=== PATIENT | male | born 1980 | race Caucasian/White ===

== ENCOUNTER 2024-01-11 13:33 | Outpatient (OUT) | payer BC, SELFPAY | END 2024-01-11 13:34 | disposition home or self-care (01) | LOC: PST 13:34 | PROVIDERS: Visit Provider Surgery | DX: Z01.818 Encounter for other preprocedural examination (principal); K62.5 Hemorrhage of anus and rectum ==

== ENCOUNTER 2024-01-14 14:05 | Outpatient (OUT) | payer BC, SELFPAY ==
--- NOTE | 2024-01-14 | XR_ITS ---
[address] [address] Patient Name: LAUREN PARNELL MRN: [id number] date: 1980 Sex: M Assigned Patient Location: [facility] Current Patient Location: [facility] Accession/Order Number: [id number] Exam Date: 01/14/2024 14:15 Report Date: 01/14/2024 14:51 At the request of: YVETTE PEARCE Procedure: XR chest 2V EXAM: XR chest 2V HISTORY: pre surgical testing COMPARISON: None. TECHNIQUE: PA, lateral chest x-ray. FINDINGS: Lungs clear without infiltrate or edema or focal lesion. Normal heart size and mediastinal contour. No pleural effusion or pneumothorax. No suspicious bone lesion. XR/XR chest 2V IMPRESSION: Negative chest x-ray, no acute findings. Electronically authenticated by: ELLEN YAO Date: 01/14/2024 14:51
--- OUTSIDE RECORDS SUMMARY | 2024-01-14 14:08 | XMS_ITS | CCD ---
Author Organization [facility] Team Providers Care Tare Worker Name Role Phone Joy Nieto Unavailable SHANTELL SINGH Referring Unavailable ALEX DONOVAN Primary Care Unavailable Lindsay Stevens NP Unavailable Alex Donovan DO Primary Care Provider Lindsay Stevens NP Unavailable LINDSAY STEVENS Attending Unavailable LINDSAY STEVENS Referring Unavailable ALONSO GRANADOS Attending Unavailable YVETTE PEARCE Attending Unavailable Medications Current Medications Medication Drug Class(es) Dates Sig (Normalized) Sig (Original) cyclobenzaprine hydrochloride 10 mg oral tablet (1 source) Muscle Relaxant Start: 2 take 1 tablet by mouth every eight hours Cyclobenzaprine HCl 10 MG 1 tablet as needed Orally Three times a day for 7 days Apr, Active methylPREDNISolone 4 mg oral tablet (1 source) Corticosteroid Start: 2 methylPREDNISolone 4 MG as directed Orally Once a day for 6 days Apr, Active multivitamin (Theragran) tablet (3 sources) take 1 tablet by mouth once daily multivitamin (Theragran) tablet Take 1 tablet by mouth Daily Active therapeutic multivitamin-minerals (Theragran-M) tablet (2 sources) take 1 tablet by mouth once daily therapeutic multivitamin-minerals (Theragran-M) tablet Take 1 tablet by mouth Daily Active Problems Active Problems Problem Classification Problem Date Documented Da te Episodic/Chronic Gastrointestinal hemorrhage (4 sources) Rectal hemorrhage; Translations: [Hemorrhage of anus and rectum] 01-02-2024 Episodic Genitourinary symptoms and ill-defined conditions (1 source) Other symptoms and signs involving the genitourinary system; Translations: [Other symptoms and signs involving the genitourinary system] Onset: 06-26-2023 Episodic Spondylosis; intervertebral disc disorders; other back problems (2 sources) Inflammation of sacroiliac joint; Translations: [Sacroiliitis, not elsewhere classified] 01-02-2024 Chronic Past or Other Problems Problem Classification Problem Date Documented Da te Episodic/Chronic Mood disorders (3 sources) Mood disorders Onset: 05-17-2023 05-17-2023 Other lower respiratory disease (1 source) Pleurodynia Onset: 04-27-2021 Resolved: 04-27-2021 Episodic Results Test Name Value Interpretation Reference Range Facility Cult,Urineon 06-27-2023 Cult,Urine Specimen Description .CLEAN CATCH URINE Culture NO GROWTH Report Status FINAL 06/27/2023 Normal [facility] Comment on above: Performed By: #### U RC #### [address] [id number] Boxing Promoter: Laureano Trinidad MD [facility] [address] [place] [address] [place] [address] Boxing Promoter: Yogi Chase MD Urinalysis w/ Microon 2023 Bilirubin, SemiQt,Ur Negative Normal NEG [facility] Comment on above: Performed By: #### U AMIC #### [address] [place] [address] Boxing Promoter: Yogi Chase MD Blood, Urine Negative Normal NEG [facility] Comment on above: Performed By: #### U AMIC #### [facility] [address] [place] [address] [place] [address] Boxing Promoter: Yogi Chase MD Clarity (U) Clear Normal CLEAR [facility] Comment on above: Performed By: #### U AMIC #### [address] [place] [address] Boxing Promoter: Yogi Chase MD Color (U) Yellow Normal YEL [facility] Comment on above: Performed By: #### U AMIC #### [facility] [address] [place] [address] Dr. [place], [place] [id number] Boxing Promoter: Yogi Chase MD Epithelial cells LM Ql (Urine sed) None Normal 0-5 [facility] Comment on above: Performed By: #### U AMIC #### [facility] [address] [place] [address] Dr. [place], [place] [phone] Boxing Promoter: Yogi Chase MD Glucose Ql (U) Negative Normal NEG [facility] Comment on above: Performed By: #### U AMIC #### [address] [place], [place] [phone] Boxing Promoter: Yogi Chase MD Ketones Ql (U) Negative Normal NEG [facility] Comment on above: Performed By: #### U AMIC #### [address] [place], [place] [id number] Boxing Promoter: Yogi Chase MD Leukocyte esterase Test strip Ql (U) Negative Normal NEG [facility] Comment on above: Performed By: #### U AMIC #### [address] [place], [place] [phone] Boxing Promoter: Yogi Chase MD Nitrite,Ur Negative Normal NEG [facility] Comment on above: Performed By: #### U AMIC #### [facility] [address] [place] [address] Dr. [place], [facility] Boxing Promoter: Yogi Chase MD PH,Ur 7.0 Normal 5.0-9.0 [facility] Comment on above: Performed By: #### U AMIC #### [address] [place], [place] [phone] Boxing Promoter: Yogi Chase MD Protein Ql (U) Negative Normal NEG [facility] Comment on above: Performed By: #### U AMIC #### [facility] [address] [place] [address] Dr[place], [place] [phone] Boxing Promoter: Yogi Chase MD Spec. [place],Ur <1.005 Low 1.010-1.020 [facility] Comment on above: Performed By: #### U AMIC #### [facility] [address] [place] [phone] Boxing Promoter: Yogi Chase MD Urine RBC's None Normal 0-2 [facility] Comment on above: Performed By: #### U AMIC #### [facility] [address] [place] [address] [place] [address] Boxing Promoter: Yogi Chase MD Urine WBC's None Normal 0-5 [facility] Comment on above: Performed By: #### U AMIC #### [facility] [address] [place] [address] Dr. [place] [phone] Boxing Promoter: Yogi Chase MD Urobilinogen,Ur Normal Normal 0.0-1.0 [facility] Comment on above: Performed By: #### U AMIC #### [address] [place] [phone] Boxing Promoter: Yogi Chase MD CT Chest w/Contraston 2022 CT Chest w/Contrast CLINICAL INDICATION: Right middle lobe nodule, found on recent thoracic spine CT. COMPARISON: Thoracic spine CT 06/17/22. TECHNIQUE: Axial CT scan of the chest was performed following intravenous contrast. Sagittal and coronal reformats were obtained. FINDINGS: Lungs: Pulmonary parenchyma is without evidence of consolidation. A 6 mm angular nodule in the right middle lobe is along the minor fissure. No pleural effusion. No pneumothorax. Mediastinum, heart, and hilum: A 12 mm anterior mediastinal/prevascu lar nodule with adjacent residual thymic tissue is redemonstrated. No evidence of mediastinal or hilar adenopathy. Normal cardiac chamber orientation. No pericardial thickening or effusion. Upper Abdomen: Imaged portions of the solid organs are unremarkable. Bones and soft tissues: Old T8 and T9 minimally depressed superior endplate compression fractures are redemonstrated. No acute bone or soft tissue abnormality is seen. IMPRESSION: 1. The 6 mm right middle lobe nodule is unchanged, and most likely an intrafissural lymph node. Fleischner criteria recommends follow-up chest CT in 6-12 months. 2. Unchanged 12 mm anterior mediastinal nodule. This is again nonspecific, but a thymoma is not excluded. Attention warranted on follow-up chest CT. Report reported and signed by Kael Downey on 06/27/2022 [address] [facility] [address] Lumbar Spine w/o Contrast *on 06-17-2022 CT Lumbar Spine w/o Contrast* CLINICAL HISTORY: Pain and impaired gait. COMPARISON: None available. TECHNIQUE: Spiral imaging was obtained of the lumbar spine without contrast. All CT scans at this facility use dose modulation, iterative reconstruction, and/or weight based dosing when appropriate to reduce radiation dose to as low as reasonably achievable. FINDINGS: A mild chronic compression deformity of the superior endplate of L4 is present with a prominent Schmorl's node in the anterior third. Borderline degenerative retrolisthesis is present at L2-L3 and L5-S1. Borderline disc space narrowing L3-L4 through L5-S1. No significant hypertrophic facet changes. There is no other fracture, sizable disc herniations, worrisome bone destruction, or other findings of concern identified. The visualized sacroiliac joints and paraspinal soft tissues are unremarkable. IMPRESSION: MILD CHRONIC L4 COMPRESSION DEFORMITY AND MILD LUMBAR SPONDYLOSIS, NOTED. Report reported and signed by Sebastian Serrano on 06/20/2022 [address] [facility] [address] Thoracic Spine w/o Contra st*on 06-17-2022 CT Thoracic Spine w/o Contrast* CLINICAL HISTORY: Pain radiating to both upper extremities and impaired gait. COMPARISON: None available. TECHNIQUE: Spiral imaging was obtained of the thoracic spine without contrast. All CT scans at this facility use dose modulation, iterative reconstruction, and/or weight based dosing when appropriate to reduce radiation dose to as low as reasonably achievable. FINDINGS: Minimal chronic compression deformities are present of the superior endplates of T9 and T10 vertebral bodies. There is no acute or other fracture, significant degenerative changes, subluxation, sizable disc herniations worrisome bone destruction, or acute findings identified. An approximately 1.2 x 1.0 cm nonspecific ovoid soft tissue density nodule is noted within the anterior mediastinum (axial image 44 of 134), with mild surrounding ill-defined probable residual thymus tissue. A thymoma is a consideration. Surgical consultation is suggested. Further evaluation with a PET/CT could be considered. An approximately 5 to 6 mm somewhat triangular-shaped probably juxtapleural nodule within the anterolateral aspect of the mid right lung zone (axial image 57 of 134) is most likely benign. There are no other findings of concern identified elsewhere. IMPRESSION: CHRONIC MINIMAL COMPRESSION DEFORMITIES OF THE SUPERIOR ENDPLATES OF T9 AND T10. NONSPECIFIC 1.2 CM ANTERIOR MEDIASTINAL SOFT TISSUE NODULE, NOTED. PROBABLY JUXTAPLEURAL 5 TO 6 MM RIGHT MID LUNG ZONE NODULE. FURTHER EVALUATION WITH A PET/CT COULD BE CONSIDERED. Report reported and signed by Sebastian Serrano on 06/20/2022 1143 Normal [facility] Complete Blood Counton 07-19 Erythrocyte distribution width (RBC) [Ratio] 11.9 % Normal 11.0-15.0 [facility] Comment on above: Performed By: #### C YAHAIRA ACKERMAN, CMP #### [facility] [address] [place], [place] [id number] Hematocrit (Bld) [Volume fraction] 47.6 % Normal 38.5-50.0 [facility] Comment on above: Performed By: #### YAHAIRA ANTHONY, CMP #### [facility] [address], [place] [id number] Hemoglobin (Bld) [Mass/Vol] 16.1 g/dL Normal 13.0-17.1 [facility] Comment on above: Performed By: #### YAHAIRA ANTHONY, CMP #### [facility] [address] [place], [place] [id number] MCH (RBC) [Entitic mass] 31.6 pg Normal 27.0-33.0 [facility] Specialist Comment on above: Performed By: #### C YAHARIA ACKERMAN, CMP #### [facility] [address], [place] [id number] MCHC (RBC) [Mass/Vol] 33.8 g/dL Normal 32.0-36.0 [facility] Comment on above: Performed By: #### YAHAIRA ANTHONY, CMP #### [facility] [address] [place], [place] [id number] MCV (RBC) [Entitic vol] 94 fL Normal 80-100 [facility] Comment on above: Performed By: #### YAHAIRA ANTHONY, CMP #### [facility] [address] [place], [place] [id number] Platelet mean volume (Bld) [Entitic vol] 11.80 fL Normal 7.50-12.50 [facility] [employer] Comment on above: Performed By: #### YAHAIRA ANTHONY, CMP #### [facility] [address] [place], [place] [id number] Platelets (Bld) [#/Vol] 222 10*3/uL Normal 140-400 [facility] Special[facility] Comment on above: Performed By: #### YAHAIRA ANTHONY, CMP #### [facility] [address] [place], [place] [id number] RBC (Bld) [#/Vol] 5.09 10*6/uL Normal 4.20-5.80 [facility] Specialist Comment on above: Performed By: #### YAHAIRA ANTHONY, CMP #### [facility] [address] [place], [place] [id number] RDW-SD 41.3 fL Normal 37.0-50.0 [facility] Specialist Comment on above: Performed By: #### YAHAIRA ANTHONY, CMP #### [facility] [address] [place], [place] [id number] WBC (Bld) [#/Vol] 6.4 10*3/uL Normal 3.8-11.0 [facility] [employer] Comment on above: Performed By: #### Cabrera ACKERMAN LIPD, CMP #### [facility] [address] [place], [place] [id number] Comprehensive Met[facility] 07-19-2021 Albumin [Mass/Vol] 4.7 g/dL Normal 3.6-5.1 [facility] [employer] Comment on above: Performed By: #### Cabrera ACKERMAN LIPD, CMP #### [facility] [address] [place], [place] [id number] Albumin/Globulin [Mass ratio] 2.1 {ratio} Normal 1.0-2.5 [facility] Special[facility] Comment on above: Performed By: #### C BC, LIPD, CMP #### [facility] [address] [place], [place] [id number] ALP [Catalytic activity/Vol] 68 U/L Normal 40-129 [facility] Special[facility] Comment on above: Performed By: #### C BC, LIPD, CMP #### [facility] [address] [facility] [place] [id number] ALT [Catalytic activity/Vol] 29 U/L Normal 9-46 [facility] Comment on above: Result Comment: 01/27 Female reference range changed. Performed By: #### C BC, LIPD, CMP #### [facility] [address] [place] [id number] Anion gap [Moles/Vol] 16 mmol/L Normal 12-20 [facility] Special[facility] Comment on above: Result Comment: Effe ctive 03/04/2019 reference range changed. Performed By: #### C BC, LIPD, CMP #### [facility] [address] [facility] [place] [id number] AST [Catalytic activity/Vol] 30 U/L Normal 10-40 [facility] Special[facility] Comment on above: Performed By: #### C BC, LIPD, CMP #### [facility] [address] [place] [facility] [place] [id number] Bilirubin [Mass/Vol] 0.66 mg/dL Normal 0.30-1.20 [facility] Special[facility] Comment on above: Performed By: #### C BC, LIPD, CMP #### [facility] [address] [place], [place] [id number] BUN/CREA 16 Ratio Normal 6-22 [facility] Specialist Comment on above: Performed By: #### C BC, LIPD, CMP #### [facility] [address] [place], [place] [id number] Calcium [Mass/Vol] 10.0 mg/dL Normal 8.6-10.2 [facility] Comment on above: Performed By: #### C BC, LIPD, CMP #### [facility] [address] [id number] Chloride [Moles/Vol] 105 mmol/L Normal 98-107 [facility] Comment on above: Performed By: #### C BC, LIPD, CMP #### [facility] [address] [place] [id number] CO2 [Moles/Vol] 24 mmol/L Normal 20-31 [facility] Comment on above: Performed By: #### C BC, LIPD, CMP #### [facility] [address] [place], [place] [id number] Creatinine [Mass/Vol] 0.8 mg/dL Normal 0.7-1.4 [facility] Special[facility] Comment on above: Performed By: #### C BC, LIPD, CMP #### [facility] [address] [id number] eGFRAA 125 mL/min/1.73m2 Normal >60 [facility] Comment on above: Performed By: #### C BC, LIPD, CMP #### [facility] [address] [place] [facility] [place] [id number] eGFRNAA 104 mL/min/1.73m2 Normal >60 [facility] Comment on above: Performed By: #### C BC, LIPD, CMP #### [facility] [address] [place] [facility] [place] [id number] Globulin (S) [Mass/Vol] 2.2 g/dL Normal 1.9-3.7 [facility] Comment on above: Performed By: #### C BC, LIPD, CMP #### [facility] [address] [place] [facility] [place] [id number] Glucose [Mass/Vol] 86 mg/dL Normal 65-99 [facility] Comment on above: Result Comment: For FASTING Glucose --- ADA reference ranges: Normal 65-99 mg/dl Prediabetes 100-125 Diabetes >/= 126 Performed By: #### C BC, LIPD, CMP #### [facility] [address] [place] [facility] [place] [id number] Potassium [Moles/Vol] 4.8 mmol/L Normal 3.5-5.5 [facility] Specialist Comment on above: Performed By: #### C BC, LIPD, CMP #### [facility] [address] [place] [facility] [place] [id number] Protein [Mass/Vol] 6.9 g/dL Normal 6.1-8.1 [facility] [place] [employer] Comment on above: Performed By: #### C BC, LIPD, CMP #### [facility] [address] [place], [place] [id number] Sodium [Moles/Vol] 140 mmol/L Normal 135-146 [facility] [place] [employer] Comment on above: Performed By: #### C BC, LIPD, CMP #### [facility] [address] [place], [place] [id number] Urea nitrogen [Mass/Vol] 13 mg/dL Normal 7-25 [facility] [employer] Comment on above: Performed By: #### C BC, LIPD, CMP #### [facility] [address] [place], [place] [id number] Lipid Panelon 07-19-2021 Cholesterol [Mass/Vol] 180 mg/dL Normal 125-200 [facility] [employer] Comment on above: Result Comment: Low risk < 200mg/dL Borderline risk 201-239 mg/dl High risk > or equal to 240 Performed By: #### C BC, LIPD, CMP #### [facility] [address] [place], [place] [id number] Cholesterol in HDL [Mass/Vol] 47 mg/dL Normal >40 [facility] [employer] Comment on above: Result Comment: High Cardiovascular Risk HDL <40 mg/dL Low Cardiovascular Risk HDL > or equal to 60 mg/dl Performed By: #### C BC, LIPD, CMP #### [facility] [address], [place] [id number] Cholesterol in LDL [Mass/Vol] 116 mg/dL Normal [facility] [employer] Comment on above: Result Comment: LDL ATP III CLASSIFICATION LDL less than 100 mg/dl Optimal LDL 100-129 mg/dl Near or above optimal LDL 130-159 Borderline high LDL 160-189 High LDL greater than 189 mg/dl Very High Performed By: #### C BC, LIPD, CMP #### [facility] [address] [place], [place] [id number] Cholesterol in VLDL [Mass/Vol] 17 mg/dL Normal [facility] [employer] Comment on above: Performed By: #### C BC, LIPD, CMP #### [facility] [address] [place], [place] [id number] Cholesterol.total/C holesterol in HDL [Mass ratio] 4 {ratio} Normal [facility] [employer] Comment on above: Performed By: #### C BC, LIPD, CMP #### [facility] [address] [place], [place] [id number] Triglyceride [Mass/Vol] 83 mg/dL Normal 30-150 [facility] [employer] Comment on above: Result Comment: TRIG ATPIII CLASSIFICATIONS TRIG less than 150 mg/dl Normal TRIG 150-199 mg/dl Borderline High TRIG 200-500 mg/dl High TRIG greather than 500 mg/dl Very High Performed By: #### C BC, LIPD, CMP #### [facility] [address], [place] [id number] Q - URINALYSIS,COMPLETEon Appearance (U) CLEAR Normal CLEAR [facility] Specialist Comment on above: Order Comment: [facility] Testing performed at: [employer] [facility], [address] [place] [address], [address] [place] [address], [address] [place] [address], Supervisor Instrument Repair: Joshua Noguera MD [facility] Collection Date/Time: [facility] Results Received Date/Time: [facility] Reported Date/Time: Performed By: #### 3 4F #### [facility] Default [address] [place] [address] BACTERIA NONE SEEN Normal NONE SEEN [facility] [employer] Comment on above: Order Comment: [facility] performed at: [employer] [facility], [address] , [address] [place] [address], [address] [place] [address], Supervisor Instrument Repair: Joshua Noguera MD [facility] Collection Date/Time: [facility] Results Received Date/Time: [facility] Reported Date/Time: Performed By: #### 3 4F #### [facility] Default [address] [place] [address] Bilirubin Ql (U) Negative Normal NEGATIVE [facility] [employer] Comment on above: Order Comment: [facility] performed at: [employer] [facility], [address] , [address] [place], [address], Supervisor Instrument Repair: Joshua Noguera MD [facility] Collection Date/Time: [facility] Results Received Date/Time: [facility] Reported Date/Time: Performed By: #### 3 4F #### [facility] Default [address] [place] [address] Color (U) YELLOW Normal YELLOW [facility] [employer] Comment on above: Order Comment: [facility] performed at: [employer], [employer] [facility], [address] , [address] [place] [address], [address] [place] [address], Supervisor Instrument Repair: Joshua Noguera MD [facility] Collection Date/Time: [facility] Results Received Date/Time: [facility] Reported Date/Time: Performed By: #### 3 4F #### [facility] Default [address] [place] [address] Glucose Ql (U) Negative Normal NEGATIVE [facility] [employer] Titles Comment on above: Order Comment: [facility] performed at: [employer], [facility], [address] , [address] [place] [address], [address] [place] [address], Supervisor Instrument Repair: Joshua Noguera MD [facility] Collection Date/Time: [facility] Results Received Date/Time: [facility] Reported Date/Time: Performed By: #### 3 4F #### [facility] Default [address] [place] [address] HYALINE CAST NONE SEEN Normal NONE SEEN [facility] [employer] Job Titles Comment on above: Order Comment: [facility] performed at: [employer], [facility], [address] , [address] [place] [address], [address] [place] [address], Supervisor Instrument Repair: Joshua Noguera MD [facility] Collection Date/Time: [facility] Results Received Date/Time: [facility] Reported Date/Time: Performed By: #### 3 4F #### [facility] Default [address] [place] [address] Ketones Ql (U) Negative Normal NEGATIVE [facility] [employer] Comment on above: Order Comment: [facility] Testing performed at: [facility], [facility] [employer] [facility], [address] [facility], [address] [place] [address], [address] [place] [address], Supervisor Instrument Repair: Joshua Noguera MD [facility] Collection Date/Time: [facility] Results Received Date/Time: [facility] Reported Date/Time: Performed By: #### 3 4F #### [facility] Default [address] [place] [address] Leukocyte esterase Test strip Ql (U) Negative Normal NEGATIVE [facility] [employer]les Comment on above: Order Comment: [facility] Testing performed at: [employer], [facility], [address] [facility], [address] [place] [address], [address] [place] [address], Supervisor Instrument Repair: Joshua Noguera MD [facility] Collection Date/Time: [facility] Results Received Date/Time: [facility] Reported Date/Time: Performed By: #### 3 4F #### [facility] Default [address] [place] [address] Nitrite Ql (U) Negative Normal NEGATIVE [facility] [employer] Comment on above: Order Comment: [facility] Testing performed at: [facility], [facility], [address] [facility], [address] [place] [address], [address] [place] [address], Supervisor Instrument Repair: Joshua Noguera MD [facility] Collection Date/Time: [facility] Results Received Date/Time: [facility] Reported Date/Time: Performed By: #### 3 4F #### [facility] Default [address] [place] [address] OCCULT BLOOD Negative Normal NEGATIVE [facility] Non Profit Job Titles Comment on above: Order Comment: [facility] Testing performed at: [facility], [facility], [address], [address] [place] [address], [address] [place] [address], Supervisor Instrument Repair: Joshua Noguera MD [facility] Collection Date/Time: [facility] Results Received Date/Time: [facility] Reported Date/Time: Performed By: #### 3 4F #### [facility] Default [address] [place] [address] pH (U) 7.5 [pH] Normal 5.0-8.0 [facility] Non Profit Job Titles Comment on above: Order Comment: [facility] Testing performed at: [employer], [facility], [address] [place] [address], [address] [place] [address], [address] [place] [address], Supervisor Instrument Repair: Joshua Noguera MD [facility] Collection Date/Time: [facility] Results Received Date/Time: [facility] Reported Date/Time: Performed By: #### 3 4F #### [facility] Default [address] [place] [address] Protein Ql (U) Negative Normal NEGATIVE [facility] Specialist Comment on above: Order Comment: [facility] Testing performed at: [employer], [facility], [address], [address] [place] [address], [address] [place] [address], Supervisor Instrument Repair: Joshua Noguera MD [facility] Collection Date/Time: [facility] Results Received Date/Time: [facility] Reported Date/Time: Performed By: #### 3 4F #### [facility] Default [address] [place] [address] RBC NONE SEEN Normal < OR = 2 [facility] Non Profit Job Titles Comment on above: Order Comment: [facility] Testing performed at: [employer], [facility], [address] [place] [address], [address] [place] [address], [address] [place] [address], Supervisor Instrument Repair: Joshua Noguera MD [facility] Collection Date/Time: [facility] Results Received Date/Time: [facility] Reported Date/Time: Performed By: #### 3 4F #### [facility] Default [address] [place] [address] Specific gravity (U) [Rel density] 1.010 Normal 1.001-1.035 [facility] Non Profit Job Titles Comment on above: Order Comment: [facility] Testing performed at: [employer], [facility], [address] [place] [address], [address] [place] [address], [address] [place] [address], Supervisor Instrument Repair: Joshua Noguera MD [facility] Collection Date/Time: [facility] Results Received Date/Time: [facility] Reported Date/Time: Performed By: #### 3 4F #### [facility] Default [address] [place] [address] SQUAMOUS EPITHELIAL CELLS NONE SEEN Normal < OR = 5 [facility] Non Profit Job Titles Comment on above: Order Comment: [facility] Testing performed at: [employer], [facility], [address] [place] [address], [address] [place] [address], [address] [place] [address], Supervisor Instrument Repair: Joshua Noguera MD [facility] Collection Date/Time: [facility] Results Received Date/Time: [facility] Reported Date/Time: Performed By: #### 3 4F #### [facility] Default [address] [place] [address] WBC NONE SEEN Normal < OR = 5 [facility] Specialist Comment on above: Order Comment: [facility] Testing performed at: [employer], [facility], [address] [place] [address], [address] [place] [address], [address] [place] [address], Supervisor Instrument Repair: Joshua Noguera MD [facility] Collection Date/Time: [facility] Results Received Date/Time: [facility] Reported Date/Time: Performed By: #### 3 4F #### [facility] Default [address] [place] [address] XR ribs LT min 3V w CXR1V*on 04-27-2021 XR ribs LT min 3V w CXR1V* [facility] Main [address] [address] XRay Report Signed Patient: Darius Reyes MR#: [id number] 5 : 1980 Acct:[id number] Age/Sex: 40 / M ADM Date: 04/27/21 Loc: XDUCLY Room: [facility] Attending Dr: Joy MORENO Ordering Provider: JOY NIETO Date of Service: 04/27/21 XR/XR ribs LT min 3V w CXR1V*: LEFT RIB PAIN Copies to: JOY NIETO PA CHEST WITH 5 VIEWS LEFT RIBS: CLINICAL HISTORY: Patient was leaning over a tire rim with a flashlight when he felt a pressure and pop in the left mid anterior rib area one week ago. COMPARISON: None Chest appears heart is normal size. Lungs are clear. No free air. Additional views of the left ribs demonstrate no displaced rib fracture. XR/XR ribs LT min 3V w CXR1V* IMPRESSION: NO ACUTE FINDINGS. Impression dictated by: Tito Samano Jr., D.ORodrigo04/27/2021 3:54 PM Dictation Location: [place] [address] Transcribed By: [facility] 04/27/21 1554 Dictated By: Tito Samano Jr, DO 04/27/21 1552 Signed By: 04/27/21 1554 Normal [facility] XR ribs LT min 3V w CXR1V* [facility] [employer] Other XR ribs LT min 3V w CXR1V* [facility] [employer] Other XR ribs LT min 3V w CXR1V* [address] [place] [address] [employer] [facility] Other XR ribs LT min 3V w CXR1V* [place] [address] [facility] Other XR ribs LT min 3V w CXR1V* XRay Report [facility] Other XR ribs LT min 3V w CXR1V* Signed [facility] Other XR ribs LT min 3V w CXR1V* Patient: Darius Reyes MR#: [id number] [facility] Other XR ribs LT min 3V w CXR1V* 5 [facility] Other XR ribs LT min 3V w CXR1V* : 1980 Acct:[id number] [facility] Other XR ribs LT min 3V w CXR1V* Age/Sex: 40 / M ADM Date: 04/27/21 [facility] Other XR ribs LT min 3V w CXR1V* Loc: XDUCLY Room: [facility] Other XR ribs LT min 3V w CXR1V* Attending Dr: Joy Nieto [facility] Other XR ribs LT min 3V w CXR1V* Ordering Provider: JOY NIETO [facility] Other XR ribs LT min 3V w CXR1V* Date of Service: 04/27/21 [facility] Other XR ribs LT min 3V w CXR1V* XR/XR ribs LT min 3V w CXR1V*: LEFT RIB PAIN [facility] Other XR ribs LT min 3V w CXR1V* Copies to: JOY NIETO [facility] Other XR ribs LT min 3V w CXR1V* PA CHEST WITH 5 VIEWS LEFT RIBS: [facility] Other XR ribs LT min 3V w CXR1V* CLINICAL HISTORY: Patient was leaning over a tire rim with a flashlight when he felt a pressure [facility] Other XR ribs LT min 3V w CXR1V* and pop in the left mid anterior rib area one week ago. [facility] Other XR ribs LT min 3V w CXR1V* COMPARISON: None [facility] Other XR ribs LT min 3V w CXR1V* Chest appears heart is normal size. Lungs are clear. No free air. Additional views of the left ribs [facility] Other XR ribs LT min 3V w CXR1V* demonstrate no displaced rib fracture. [facility] Other XR ribs LT min 3V w CXR1V* XR/XR ribs LT min 3V w CXR1V* [facility] Other XR ribs LT min 3V w CXR1V* IMPRESSION: [facility] Other XR ribs LT min 3V w CXR1V* NO ACUTE FINDINGS. [facility] Other XR ribs LT min 3V w CXR1V* Impression dictated by: Tito Samano Jr., D.O.04/27/2021 3:54 PM [facility] Other XR ribs LT min 3V w CXR1V* Dictation Location: [facility] Other XR ribs LT min 3V w CXR1V* Transcribed By: NARINDER 04/27/21 [facility] Other XR ribs LT min 3V w CXR1V* Dictated By: Tito Samano Jr, DO 04/27/21 [facility] Other XR ribs LT min 3V w CXR1V* Signed By: [facility] Other XR ribs LT min 3V w CXR1V* 04/27/21 [facility] Other Vital Signs Date Time Vital Sign Value Performing Clinician Facility 01-02-2024 15:12-0500 Body height 175.3 cm Alonso Granados NP Work Phone: [facility] 01-02-2024 15:12-0500 Body mass index (BMI) [Ratio] 23.36 kg/m2 Alonso Fruth EXCHANGE CLERK Work Phone: [facility] 01-02-2024 15:12-0500 Body temperature 96.8 [degF] Alonso Fruth EXCHANGE CLERK Work Phone: [facility] 01-02-2024 15:12-0500 Body weight 71.76 kg Alonso Fruth EXCHANGE CLERK Work Phone: [facility] 01-02-2024 15:12-0500 Diastolic blood pressure 72 mm[Hg] Alonso Fruth EXCHANGE CLERK Work Phone: [facility] 01-02-2024 15:12-0500 Heart rate 103 /min Alonso Fruth EXCHANGE CLERK Work Phone: [facility] 01-02-2024 15:12-0500 Respiratory rate 18 /min Alonso Fruth EXCHANGE CLERK Work Phone: [facility] 01-02-2024 15:12-0500 SaO2% (BldA) [Mass fraction] 96 % Alonso Fruth EXCHANGE CLERK Work Phone: [facility] 01-02-2024 15:12-0500 Systolic blood pressure 130 mm[Hg] Alonso Fruth EXCHANGE CLERK Work Phone: [facility] 04-27-2021 15:50-0500 Body height 175.26 cm Joy Elijah Other [facility] Other 04-27-2021 15:50-0500 Body temperature 97.4 [degF] Joy Elijah Other [facility] Other 04-27-2021 15:50-0500 Diastolic blood pressure 82 mm[Hg] Joy Elijah Other [facility] Other 04-27-2021 15:50-0500 Respiratory rate 20 /min Joy Nieto Other [facility] Other 04-27-2021 15:50-0500 SaO2% (BldA) [Mass fraction] 99 % Joy Elijah Other [facility] Other 04-27-2021 15:50-0500 Systolic blood pressure 134 mm[Hg] Joy Goldsmithault Other [facility] Other Encounters Encounter Date Encounter Type Care Provider Facility Start: 01-10-2024 End: 01-10-2024 ambulatory YVETTE PEARCE Not Available Start: 01-02-2024 End: 01-02-2024 ambulatory ALONSO GRANADOS Not Available Start: 01-02-2024 End: 01-02-2024 Office outpatient visit 15 minutes Alonso E Silvio EXCHANGE CLERK Work Phone: [facility] Comment on above: Rectal bleeding (Jessica maria guadalupe Dx); Sacroiliitis, not elsewhere classified (CMS/HCC) Start: 01-02-2024 End: 01-02-2024 Bamboo flowsheet Alonso E Fruth EXCHANGE CLERK Work Phone: [facility] Start: 01-02-2024 End: 01-02-2024 Bamboo flowsheet Alonso E Fruth EXCHANGE CLERK Work Phone: [facility] Start: 06-26-2023 End: 06-27-2023 ambulatory SHAN[facility]LL Kothari [facility] Start: 06-23-2023 End: 06-23-2023 ambulatory LINDSAY STEVENS Not Available Start: 05-17-2023 End: 05-17-2023 ambulatory LINDSAY STEVENS Not Available Start: 04-27-2021 End: 04-27-2021 ambulatory Joy Nieto Other [facility] Other Start: 04-27-2021 Office outpatient ne w 20 minutes Joy Nieto [facility] Plan of Treatment Date Care Activity Detail Author Start: 02-27-2024 Influenza vaccination Influenza Vacc ine (#1) [facility] Comment on above: Postponed from 10/28 (Patient Refused) Start: 10-29-2023 Influenza vaccination Influenza Vacc ine (#1) [facility] Healthcare Payers Date Payer Category Payer [facility] [id number] 2020 [facility] [id number] 2020 Unknown [id number] 1980 Unknown [id number] 1980 Unknown [id number] [id number] 1980 Unknown [id number] 1980 Unknown [id number] 1980 Unknown [id number] Social History Date Type Detail Facility Start: 05-16-2023 End: 05-17-2023 Sex Assigned At [facility] Start: 06-15-1992 End: 01-02-2024 Tobacco smoking status MIIS Occasional tobacco smoker [facility] Start: 06-15-1992 History of tobacco use Cigarette Smo ker [facility] Start: 05-16-2023 End: 05-17-2023 Cigarettes smoked current (pack per day) - Reported 0.5 [facility] Start: 05-17-2023 End: 01-02-2024 Tobacco use and exposure Smokeless tobacco non-user [facility] Start: 05-17-2023 End: 01-02-2024 Alcoholic beverage intake Current drinker of alcohol (finding) [facility] Do you belong to any clubs or organizations such as gnosticism groups, unions, fraternal or athletic groups, or school groups? No [facility] Are you now , , , , never or living with a partner? [facility] How often to you hav e a drink containing alcohol? 2-4 times a month [facility] How many standard dr inks containing alcohol do you have on a typical day? 1 or 2 [facility] How often do you hav e 6 or more drinks on 1 occasion? Never [facility] How hard is it for y ou to pay for the very basics like food, housing, medical care, and heating Not hard at all [facility] Do you feel stress - tense, restless, nervous, or anxious, or unable to sleep at night because your mind is troubled all the time - these days [OSQ] Only a little [facility] (I/We) worried wheth er (my/our) food would run out before (I/we) got money to buy more. Never true [facility] Start: 05-17-2023 Tobacco Comment Was 1ppd smoker [facility] Start: 1980 Sex assigned at Male [facility] Start: 05-16-2023 Gender identity Identifies as male gender (finding) [facility] Start: 05-16-2023 Sexual orientation Heterosexual (fin ding) [facility] History of Present illness Narrative 01-02-2024 Alonso Granados NP - 01/02/2024 3:00 PM EST Note Date & Type Note Facility 01-02-2024 History of Presen t illness Narrative Darius Reyes is a 43 y.o. male presents with chief complaint of Rectal Bleeding (Great deal of blood with his bowel movement this morning, has never had Colonoscopy. Cancer runs in his family but not colon cancer. No noted blood this afternoon when he wiped. Normal bowel movements a little cramping on the left side. ) HPI: Rectal Bleeding Associated symptoms include abdominal pain. Pertinent negatives include no nausea or vomiting. 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 Denies constipation or straining. Denies recent fall or injury to abdomen. Denies recent heavy lifting. Denies hx of hemorrhoids. Father with diverticulosis. Strong family history of cancers. Not specifically colon. Has some deep pain left side of abdomen and back. Denies fever/chills/night sweats/loss of appetite or loss of weight. Denies known hx of diverticulosis and has never had a colonoscopy. There was quite a bit of bright red blood. Filled toilet bowl and saturated toilet paper. Did have some in underwear as well. No blood since that episode. Denies nsaid use. SUBJECTIVE: MEDICATIONS: Current Outpatient Medications Medication Instructions multivitamin (Theragran) tablet 1 tablet, Oral, Daily therapeutic multivitamin-minerals (Theragran-M) tablet 1 tablet, Oral, Daily ALLERGIES: No Known Allergies SURGICAL HISTORY: Past Surgical History: Procedure Laterality Date APPEN[place]CT[place] 2003 [place]RACTURE SURGERY 1991 repaired compound fx of left leg- no metal VASECTOMY 2006 performed in [place] FAMILY HISTORY: Family History Problem Relation Name Age of Onset Accidental Mother Crystal murdered Hearing loss Father Norm No Known Problems Brother Thyroid disease Maternal Grandmother Peg Cancer Maternal Grandmother Peg Pancreatic cancer Maternal Grandfather John Cancer Maternal Grandfather John Diabetes Paternal Grandmother Pat No Known Problems Son Cancer Mother's Brother Rolan Mental illness Father's Sister Petey SOCIAL HISTORY: Social History Tobacco Use Smoking status: Some Days Current packs/day: 0.50 Average packs/day: 0.5 packs/day for 31.5 years (15.8 ttl pk-yrs) Types: Cigarettes Start date: 06/15/1992 Smokeless tobacco: Never Tobacco comments: Was 1ppd smoker Vaping Use Vaping status: Former Substance Use Topics Alcohol use: Yes Drug use: Never Depression: Not at risk (05/17/2023) PHQ-2 PHQ-2 Score: 1 REVIEW OF SYMPTOMS: Review of Systems Constitutional: Negative. HENT: Negative. Eyes: Negative. Respiratory: Negative. Cardiovascular: Negative. Gastrointestinal: Positive for abdominal pain, anal bleeding, blood in stool and hematochezia. Negative for abdominal distention, constipation, diarrhea, nausea, rectal pain and vomiting. Genitourinary: Negative. Musculoskeletal: Negative. Skin: Negative. Neurological: Negative. Psychiatric/Behavioral: Negative. Hematological: Negative. Endocrine: Negative. Allergic/Immunologic: Negative. OBJECTIVE: Visit Vitals BP 130/72 (BP Location: Right arm, Patient Position: Sitting, BP Cuff Size: Adult) Pulse 103 Temp 96.8 F (Tympanic) Resp 18 Ht 5' 9 Wt 158 lb 3.2 oz SpO2 96% BMI 23.36 kg/m Smoking Status Some Days BSA 1.87 m Physical Exam Constitutional: Appearance: Normal appearance. HENT: Head: Normocephalic and atraumatic. Right Ear: Tympanic membrane, ear canal and external ear normal. Left Ear: Tympanic membrane, ear canal and external ear normal. Nose: Nose normal. Mouth/Throat: Mouth: Mucous membranes are moist. Pharynx: Oropharynx is clear. Eyes: Extraocular Movements: Extraocular movements intact. Conjunctiva/sclera: Conjunctivae normal. Pupils: Pupils are equal, round, and reactive to light. Cardiovascular: Rate and Rhythm: Normal rate and regular rhythm. Pulses: Normal pulses. Heart sounds: Normal heart sounds. Pulmonary: Effort: Pulmonary effort is normal. Breath sounds: Normal breath sounds. Abdominal: General: Abdomen is flat. Bowel sounds are normal. There is no distension. Palpations: Abdomen is soft. There is no mass. Tenderness: There is no abdominal tenderness. There is no guarding or rebound. Hernia: No hernia is present. Genitourinary: Rectum: Normal. Musculoskeletal: General: Normal range of motion. Cervical back: Normal range of motion and neck supple. Skin: General: Skin is warm and dry. Capillary Refill: Capillary refill takes less than 2 seconds. Neurological: General: No focal deficit present. Mental Status: He is alert and oriented to person, place, and time. Mental status is at baseline. Psychiatric: Mood and Affect: Mood normal. Behavior: Behavior normal. Thought Content: Thought content normal. Judgment: Judgment normal. ASSESSMENT AND PLAN: Assessment/Plan Problem List Items Addressed This Visit None Visit Diagnoses Rectal bleeding - Primary Relevant Orders Ambulatory referral to General Surgery Monitor. Avoid straining or heavy lifting. To ER for any concerning or worsening symptoms. See GI for colonoscopy. Urgent referral sent. Sacroiliitis, not elsewhere classified (CMS/HCC) continue to stretch every day 1 week recheck bleeding documented in this encounter [facility] Clinical Note 06-23-2023 Note Date & Type Note Facility 06-23-2023 Note PROCEDURE: Without IV contrast, axial helical 5 mm slice thickness images of the chest performed. FINDINGS: Comparison made with chest CT one year earlier, June 27, 2022 Stable right anterior mid chest (right middle lobe lateral segment) subsolid 4 x 6 mm nodule, subpleural surface. Similar morphology and overall size. No new suspicious lung nodule or mass. No significant mediastinal or hilar lymphadenopathy IMPRESSION: Stable right anterior mid chest subsolid nodule. Recommend follow-up CT in one year TRANSCRIBED BY: ELECTRONICALLY SIGNED BY: Tito Reyes MD Not Available Comment on above: Order Comment: Vandana kothari Evaluation note 04-27-2021 Note Date & Type Note Facility 04-27-2021 Evaluation note Encounter Date Diagnosis Assessment Notes Apr, Rib pain on left side (ICD-10 - R07.81) Xray shows no acute findings. Recommend ice to area and follow up with PCP if symptoms persist [facility] Other Evaluation note Note Date & Type Note Facility Evaluation note Diagnosis Rectal bleeding- Primary Hemorrhage of rectum and anus Sacroiliitis, not elsewhere classified (CMS/HCC) Sacroiliitis, not elsewhere classified documented in this encounter [facility] Summary Purpose Family History No Family History Records FoundNo Family History Records FoundNo Family History Records FoundNo Family History Records Found Advance Directives No Advanced Directives Records FoundNo Advanced Directives Records FoundNo Advanced Directives Records FoundNo Advanced Directives Records Found Additional Source Comments (unrecognized sect ion and content) No Status Records FoundNo Status Records FoundNo Status Records FoundNo Status Records Found INFORMATION SOURCE (unrecogn ized section and content) DATE CREATED AUTHOR 05/07/2021 [facility] DATE CREATED AUTHOR AUTHOR'S ORGANIZ ATION 06/28/2022 [facility] Me dical Specialist DATE CREATED AUTHOR AUTHOR'S ORGANIZ ATION 06/27/2023 [facility] DATE CREATED AUTHOR AUTHOR'S ORGANIZ ATION 01/12/2024 [facility] dical Specialists EPIC REASON FOR VISIT (unrecogniz ed section and content) Reason Comments Rectal Bleeding Great deal of blood with his bowel movement this morning, has never had Colonoscopy. Cancer runs in his family but not colon cancer. No noted blood this afternoon when he wiped. Normal bowel movements a little cramping on the left side. Care Teams (unrecognized sec tion and content) Tare Worker Relationship Specialty Start Date End Date Alex Donovan DO [address] [place] [address] PCP - General Family Medicine 05/12/23 Lindsay Stevens, EXCHANGE CLERK [address] [place] [address] PCP - [facility] 06/28/23 Lindsay Stevens, EXCHANGE CLERK [address] [place] [address] Nurse Practitioner Family Medicine 05/12/23 Tare Worker Relationship Specialty Start Date End Date Alex Donovan DO [address] [place] [address] PCP - General Family Medicine 05/12/23 Lindsay Stevens, EXCHANGE CLERK [address] [place] [address] PCP - [facility] 06/28/23 Lindsay Stevens, EXCHANGE CLERK [address] [place] [address] Nurse Practitioner Family Medicine 05/12/23 FOR RECORDS PERTAINING TO PATIENTS WHO ARE OR HAVE BEEN ENROLLED IN A CHEMICAL DEPENDENCY/SUBSTANCEABUSE PROGRAM, SOME INFORMATION MAY BE OMITTED. This clinical summary was aggregated from multiple sources. Caution should be exercised in using it in the provision of clinical care. This summary normalizes information from multiple sources, and as a consequence, information in this document may materially change the coding, format and clinical context of patient data. In addition, data may be omitted in some cases. CLINICAL DECISIONS SHOULD BE BASED ON THE PRIMARY CLINICAL RECORDS. [facility]. provides no warranty or guarantee of the accuracy or completeness of information in this document.
== END 2024-01-14 14:06 | disposition home or self-care (01) ==
LOC: RAD 14:05
PROVIDERS: Visit Provider Surgery
DX: Z01.810 Encounter for preprocedural cardiovascular examination (principal)
CPT/HCPCS: 71046

== ENCOUNTER 2024-01-16 07:08 | Day surgery (SDC) | payer BC, SELFPAY ==
--- OUTSIDE RECORDS SUMMARY | 2024-01-16 07:13 | XMS_ITS | CCD ---
Author Organization [facility] Team Providers Care Paint And Table Edger Name Role Phone Joy Nieto Unavailable SHANTELL SINGH Referring Unavailable ALEX DONOVAN Primary Care Unavailable Lindsay Stevens NP Unavailable Alex Donovan DO Primary Care Provider Lindsay Stevens NP Unavailable [phone] LINDSAY STEVENS Attending Unavailable LINDSAY STEVENS Referring [...] NO GROWTH Report Status FINAL 06/27/2023 Normal [facility] Comment on above: Performed By: #### U RC #### [address] [id number] Paint And Table Edger: Laureano Trinidad MD [facility] [address] [place] [address] [place] [address] Paint And Table Edger: Yogi Chase MD Urinalysis w/ Microon 2023 Bilirubin, SemiQt,Ur Negative Normal NEG [facility] Comment on above: Performed By: #### U AMIC #### [address] [place] [address] Paint And Table Edger: Yogi Chase MD Blood, Urine Negative Normal NEG [facility] Comment on above: Performed By: #### U AMIC #### [facility] [address] [place] [address] [place] [address] Paint And Table Edger: Yogi Chase MD Clarity (U) Clear Normal CLEAR [facility] Comment on above: Performed By: #### U AMIC #### [address] [place] [address] Paint And Table Edger: Yogi Chase MD Color (U) Yellow Normal YEL [facility] Comment on above: Performed By: #### U AMIC #### [facility] [address] [place] [address] Dr. [place], [place] [id number] Paint And Table Edger: Yogi Chase MD Epithelial cells LM Ql (Urine sed) None Normal 0-5 [facility] Comment on above: Performed By: #### U AMIC #### [facility] [address] [place] [address] Dr. [place], [place] [id number] Paint And Table Edger: Yogi Chase MD Glucose Ql (U) Negative Normal NEG [facility] in Hospital Comment on above: Performed By: #### U AMIC #### [address] [place], [place] [id number] Paint And Table Edger: Yogi Chase MD Ketones Ql (U) Negative Normal NEG [facility] in Hospital Comment on above: Performed By: #### U AMIC #### [address] [place], [place] [id number] Paint And Table Edger: Yogi Chase MD Leukocyte esterase Test strip Ql (U) Negative Normal NEG [facility] Comment on above: Performed By: #### U AMIC #### [address] [place], [place] [id number] Paint And Table Edger: Yogi Chase MD Nitrite,Ur Negative Normal NEG [facility] Comment on above: Performed By: #### U AMIC #### [facility] [address] [place] [address] Dr. Pham, [facility] Paint And Table Edger: Yogi Chase MD PH,Ur 7.0 Normal 5.0-9.0 [facility] Comment on above: Performed By: #### U AMIC #### [address] [place], [place] [id number] Paint And Table Edger: Yogi Chase MD Protein Ql (U) Negative Normal NEG [facility] Comment on above: Performed By: #### U AMIC #### [facility] [address] [place] [address] Dr. [place], [place] [id number] Paint And Table Edger: Yogi Chase MD Spec. Norvell,Ur <1.005 Low 1.010-1.020 [facility] Comment on above: Performed By: #### U AMIC #### [facility] [address] [place] [id number] Paint And Table Edger: Yogi Chase MD Urine RBC's None Normal 0-2 [facility] Comment on above: Performed By: #### U AMIC #### [facility] [address] [place] [address] [place] [id number] Paint And Table Edger: Yogi Chase MD Urine WBC's None Normal 0-5 [facility] Comment on above: Performed By: #### U AMIC #### [facility] [address] [place] [address] Dr. Pham [place] [id number] Paint And Table Edger: Yogi Chase MD Urobilinogen,Ur Normal Normal 0.0-1.0 [facility] Comment on above: Performed By: #### U AMIC #### [address] [place] [id number] Paint And Table Edger: Yogi Chase MD CT Chest w/Contraston 2022 [...] by Kael Downey on 06/27/2022 1638 Normal [facility] CT Lumbar Spine w/o Contrast *on [...] by Sebastian Serrano on 06/20/2022 1205 Normal [facility] CT Thoracic Spine w/o Contra st*on [...] by Sebastian Serrano on 06/20/2022 1143 Normal [facility] Complete Blood Counton 07-19 Erythrocyte distribution width (RBC) [Ratio] 11.9 % Normal 11.0-15.0 [facility] Comment on above: Performed By: #### C YAHAIRA ACKERMAN, CMP #### [facility] [address] [place], [place] [id number] Hematocrit (Bld) [Volume fraction] 47.6 % Normal 38.5-50.0 [facility] Comment on above: Performed By: #### YAHAIRA ANTHONY, CMP #### [facility] [address] [place], [place] [id number] Hemoglobin (Bld) [Mass/Vol] 16.1 g/dL Normal 13.0-17.1 [facility] Comment on above: Performed By: #### YAHAIRA ANTHONY, CMP #### [facility] [address] [place], [place] [id number] MCH (RBC) [Entitic mass] 31.6 pg Normal 27.0-33.0 [facility] Comment on above: Performed By: #### C YAHAIRA ACKERMAN, CMP #### [facility] [address] [place], [place] [id number] MCHC (RBC) [Mass/Vol] 33.8 g/dL Normal 32.0-36.0 [facility] Comment on above: Performed By: #### YAHAIRA ANTHONY, CMP #### [facility] [address] [place], [place] [id number] MCV (RBC) [Entitic vol] 94 fL Normal 80-100 [facility] Comment on above: Performed By: #### YAAHIRA ANTHONY, CMP #### [facility] [address] [place], [place] [id number] Platelet mean volume (Bld) [Entitic vol] 11.80 fL Normal 7.50-12.50 [facility] Instrument And Electrical Technician Comment on above: Performed By: #### YAHAIRA ANTHONY, CMP #### [facility] [address] [place], [place] [id number] Platelets (Bld) [#/Vol] 222 10*3/uL Normal 140-400 [facility] Comment on above: Performed By: #### YAHAIRA ANTHONY, CMP #### [facility] [address] [place], [place] [id number] RBC (Bld) [#/Vol] 5.09 10*6/uL Normal 4.20-5.80 [facility] Specialist Comment on above: Performed By: #### YAHAIRA ANTHONY, CMP #### [facility] [address] [place], [place] [id number] RDW-SD 41.3 fL Normal 37.0-50.0 [facility] Comment on above: Performed By: #### YAHAIRA ANTHONY, CMP #### [facility] [address] [place], [place] [id number] WBC (Bld) [#/Vol] 6.4 10*3/uL Normal 3.8-11.0 [facility] Instrument [employer] Electrical Technician Comment on above: Performed By: #### Cabrera ACKERMAN LIPD, CMP #### [facility] [address] [place], [place] [id number] Comprehensive Metabolic [facility] 07-19-2021 Albumin [Mass/Vol] 4.7 g/dL Normal 3.6-5.1 [facility] Instrument And Electrical Technician Comment on above: Performed By: #### Cabrera ACKERMAN LIPD, CMP #### [facility] [address] [place], [place] [id number] Albumin/Globulin [Mass ratio] 2.1 {ratio} Normal 1.0-2.5 [facility] Comment on above: Performed By: #### C BC, LIPD, CMP #### [facility] [address] [place], [place] [id number] ALP [Catalytic activity/Vol] 68 U/L Normal 40-129 [facility] Comment on above: Performed By: #### C BC, LIPD, CMP #### [facility] [address] [facility] [place] [id number] ALT [Catalytic activity/Vol] 29 U/L Normal 9-46 [facility] [place] [facility] Comment on above: Result Comment: 01/27 Female reference range changed. Performed By: #### C BC, LIPD, CMP #### [facility] [address] [place] [id number] Anion gap [Moles/Vol] 16 mmol/L Normal 12-20 [facility] Comment on above: Result Comment: Effe ctive 03/04/2019 reference range changed. Performed By: #### C BC, LIPD, CMP #### [facility] [address] [facility] [place] [id number] AST [Catalytic activity/Vol] 30 U/L Normal 10-40 [facility] Comment on above: Performed By: #### C BC, LIPD, CMP #### [facility] [address] [facility] [place] [id number] Bilirubin [Mass/Vol] 0.66 mg/dL Normal 0.30-1.20 [facility] Comment on above: Performed By: #### C BC, LIPD, CMP #### [facility] [address], [place] [id number] BUN/CREA 16 Ratio Normal 6-22 [facility] Comment on above: Performed By: #### C BC, LIPD, CMP #### [facility] [address] [place], [place] [id number] Calcium [Mass/Vol] 10.0 mg/dL Normal 8.6-10.2 [facility] Comment on above: Performed By: #### C BC, LIPD, CMP #### [facility] [address] [place] [id number] Chloride [Moles/Vol] 105 mmol/L Normal 98-107 [facility] Comment on above: Performed By: #### C BC, LIPD, CMP #### [facility] [address] [place], [place] [id number] CO2 [Moles/Vol] 24 mmol/L Normal 20-31 [facility] Comment on above: Performed By: #### C BC, LIPD, CMP #### [facility] [address] [place], [place] [id number] Creatinine [Mass/Vol] 0.8 mg/dL Normal 0.7-1.4 [facility] [place] [facility] Comment on above: Performed By: #### C BC, LIPD, CMP #### [facility] [address] [place] [id number] eGFRAA 125 mL/min/1.73m2 Normal >60 [facility] Comment on above: Performed By: #### C BC, LIPD, CMP #### [facility] [address] [facility] [place] [id number] eGFRNAA 104 mL/min/1.73m2 Normal >60 [facility] Comment on above: Performed By: #### C BC, LIPD, CMP #### [facility] [address] [facility] [place] [id number] Globulin (S) [Mass/Vol] 2.2 g/dL Normal 1.9-3.7 [facility] [place] [facility] Comment on above: Performed By: #### C BC, LIPD, CMP #### [facility] [address] [facility] [place] [id number] Glucose [Mass/Vol] 86 mg/dL Normal 65-99 [facility] Comment on above: Result Comment: For FASTING Glucose --- ADA reference ranges: Normal 65-99 mg/dl Prediabetes 100-125 Diabetes >/= 126 Performed By: #### C BC, LIPD, CMP #### [facility] [address] [facility] [place] [id number] Potassium [Moles/Vol] 4.8 mmol/L Normal 3.5-5.5 [facility] [place] [facility] Comment on above: Performed By: #### C BC, LIPD, CMP #### [facility] [address] [facility] [place] [id number] Protein [Mass/Vol] 6.9 g/dL Normal 6.1-8.1 [facility] r[facility] [place] Instrument And Electrical Technician Comment on above: Performed By: #### C BC, LIPD, CMP #### [facility] [address], [place] [id number] Sodium [Moles/Vol] 140 mmol/L Normal 135-146 [facility] [place] Instrument And Electrical Technician Comment on above: Performed By: #### C BC, LIPD, CMP #### [facility] [address] [place], [place] [id number] Urea nitrogen [Mass/Vol] 13 mg/dL Normal 7-25 [facility] Instrument And Electrical Technician Comment on above: Performed By: #### C BC, LIPD, CMP #### [facility] [address] [place], [place] [id number] Lipid Panelon 07-19-2021 Cholesterol [Mass/Vol] 180 mg/dL Normal 125-200 [facility] Instrument And Electrical Technician Comment on above: Result Comment: Low risk < 200mg/dL Borderline risk 201-239 mg/dl High risk > or equal to 240 Performed By: #### C BC, LIPD, CMP #### [facility] [address] [place], [place] [id number] Cholesterol in HDL [Mass/Vol] 47 mg/dL Normal >40 [facility] Instrument And Electrical Technician Comment on above: Result Comment: High Cardiovascular Risk HDL <40 mg/dL Low Cardiovascular Risk HDL > or equal to 60 mg/dl Performed By: #### C BC, LIPD, CMP #### [facility] [address] [place], [place] [id number] Cholesterol in LDL [Mass/Vol] 116 mg/dL Normal [facility] Instrument And Electrical Technician Comment on above: Result Comment: LDL ATP III CLASSIFICATION LDL less than 100 mg/dl Optimal LDL 100-129 mg/dl Near or above optimal LDL 130-159 Borderline high LDL 160-189 High LDL greater than 189 mg/dl Very High Performed By: #### C BC, LIPD, CMP #### [facility] [address] [place], [place] [id number] Cholesterol in VLDL [Mass/Vol] 17 mg/dL Normal [facility] Instrument And Electrical Technician Comment on above: Performed By: #### C BC, LIPD, CMP #### [facility] [address] [place], [place] [id number] Cholesterol.total/C holesterol in HDL [Mass ratio] 4 {ratio} Normal [facility] Instrument And Electrical Technician Comment on above: Performed By: #### C BC, LIPD, CMP #### [facility] [address] [place], [place] [id number] Triglyceride [Mass/Vol] 83 mg/dL Normal 30-150 [facility] Instrument And Electrical Technician Comment on above: Result Comment: TRIG ATPIII CLASSIFICATIONS TRIG less than 150 mg/dl Normal TRIG 150-199 mg/dl Borderline High TRIG 200-500 mg/dl High TRIG greather than 500 mg/dl Very High Performed By: #### C BC, LIPD, CMP #### [facility] [address] [place], [place] [id number] Q - URINALYSIS,COMPLETEon Appearance (U) CLEAR Normal CLEAR [facility] Specialist Comment on above: Order Comment: [facility] performed at: [facility], [address] [place] [address], [address] [place] [address], [address] [place] [address], Can Intake Worker: Joshua Noguera MD [facility] Date/Time: [facility] Results Received Date/Time: [facility] Reported Date/Time: Performed By: #### 3 4F #### [facility] Default [address] [place] [address] BACTERIA NONE SEEN Normal NONE SEEN [facility] Instrument And Electrical Technician Comment on above: Order Comment: [facility] performed at: [facility], [address] , [address] [place] [address], [address] [place] [address], Can Intake Worker: Joshua Noguera MD [facility] Date/Time: [facility] Results Received Date/Time: [facility] Reported Date/Time: Performed By: #### 3 4F #### [facility] Default [address] [place] [address] Bilirubin Ql (U) Negative Normal NEGATIVE [facility] Instrument And Electrical Technician Comment on above: Order Comment: [facility] performed at: [facility], [address] , [address] [place], [address], Can Intake Worker: Joshua Noguera MD [facility] Date/Time: [facility] Results Received Date/Time: [facility] Reported Date/Time: Performed By: #### 3 4F #### [facility] Default [address] [place] [address] Color (U) YELLOW Normal YELLOW [facility] Instrument And Electrical Technician Comment on above: Order Comment: [facility] performed at: [employer], [facility], [address] , [address] [place] [address], [address] [place] [address], Can Intake Worker: Joshua Noguera MD [facility] Date/Time: [facility] Results Received Date/Time: [facility] Reported Date/Time: Performed By: #### 3 4F #### [facility] Default [address] [place] [address] Glucose Ql (U) Negative Normal NEGATIVE [facility] Instrument And Electrical Technician Comment on above: Order Comment: [facility] performed at: [employer], [facility], [address] , [address] [place] [address], [address] [place] [address], Can Intake Worker: Joshua Noguera MD [facility] Date/Time: [facility] Results Received Date/Time: [facility] Reported Date/Time: Performed By: #### 3 4F #### [facility] Default [address] [place] [address] HYALINE CAST NONE SEEN Normal NONE SEEN [facility] Instrument And Electrical Technician Comment on above: Order Comment: [facility] performed at: [employer], [facility], [address] , [address] [place] [address], [address] [place] [address], Can Intake Worker: Joshua Noguera MD [facility] Date/Time: [facility] Results Received Date/Time: [facility] Reported Date/Time: Performed By: #### 3 4F #### [facility] Default [address] [place] [address] Ketones Ql (U) Negative Normal NEGATIVE [facility] Instrument And Electrical Technician Comment on above: Order Comment: [facility] performed at: [facility], [facility], [address] [facility], [address] [place] [address], [address] [place] [address], Can Intake Worker: Joshua Noguera MD [facility] Date/Time: [facility] Results Received Date/Time: [facility] Reported Date/Time: Performed By: #### 3 4F #### [facility] Default [address] [place] [address] Leukocyte esterase Test strip Ql (U) Negative Normal NEGATIVE [facility] Instrument And Electrical Technician Comment on above: Order Comment: [facility] performed at: [employer], [facility], [address] [facility], [address] [place] [address], [address] [place] [address], Can Intake Worker: Joshua Noguera MD [facility] Date/Time: [facility] Results Received Date/Time: [facility] Reported Date/Time: Performed By: #### 3 4F #### [facility] Default [address] [place] [address] Nitrite Ql (U) Negative Normal NEGATIVE [facility] Instrument And Electrical Technician Comment on above: Order Comment: [facility] performed at: [facility], [facility], [address] [facility], [address] [place] [address], [address] [place] [address], Can Intake Worker: Joshua Noguera MD [facility] Date/Time: [facility] Results Received Date/Time: [facility] Reported Date/Time: Performed By: #### 3 4F #### [facility] Default [address] [place] [address] OCCULT BLOOD Negative Normal NEGATIVE [facility] Instrument And Electrical Technician Comment on above: Order Comment: [facility] performed at: [facility], [facility], [address] [facility], [address] [place] [address], [address] [place] [address], Can Intake Worker: Joshua Noguera MD [facility] Date/Time: [facility] Results Received Date/Time: [facility] Reported Date/Time: Performed By: #### 3 4F #### [facility] Default [address] [place] [address] pH (U) 7.5 [pH] Normal 5.0-8.0 [facility] Instrument And Electrical Technician Comment on above: Order Comment: [facility] performed at: [employer], [facility], [address] [place] [address], [address] [place] [address], [address] [place] [address], Can Intake Worker: Joshua Noguera MD [facility] Date/Time: [facility] Results Received Date/Time: [facility] Reported Date/Time: Performed By: #### 3 4F #### [facility] Default [address] [place] [address] Protein Ql (U) Negative Normal NEGATIVE [facility] Specialist Comment on above: Order Comment: [facility] performed at: [employer], [facility], [address] [facility], [address] [place] [address], [address] [place] [address], Can Intake Worker: Joshua Noguera MD [facility] Date/Time: [facility] Results Received Date/Time: [facility] Reported Date/Time: Performed By: #### 3 4F #### [facility] Default [address] [place] [address] RBC NONE SEEN Normal < OR = 2 [facility] Instrument And Electrical Technician Comment on above: Order Comment: [facility] performed at: [employer], [facility], [address] [place] [address], [address] [place] [address], [address] [place] [address], Can Intake Worker: Joshua Noguera MD [facility] Date/Time: [facility] Results Received Date/Time: [facility] Reported Date/Time: Performed By: #### 3 4F #### [facility] Default [address] [place] [address] Specific gravity (U) [Rel density] 1.010 Normal 1.001-1.035 [facility] Instrument And Electrical Technician Comment on above: Order Comment: [facility] performed at: [employer], [facility], [address] [place] [address], [address] [place] [address], [address] [place] [address], Can Intake Worker: Joshua Noguera MD [facility] Date/Time: [facility] Results Received Date/Time: [facility] Reported Date/Time: Performed By: #### 3 4F #### [facility] Default [address] [place] [address] SQUAMOUS EPITHELIAL CELLS NONE SEEN Normal < OR = 5 [facility] Instrument And Electrical Technician Comment on above: Order Comment: [facility] performed at: [employer], [facility], [address] [place] [address], [address] [place] [address], [address] [place] [address], Can Intake Worker: Joshua Noguera MD [facility] Date/Time: [facility] Results Received Date/Time: [facility] Reported Date/Time: Performed By: #### 3 4F #### [facility] Default [address] [place] [address] WBC NONE SEEN Normal < OR = 5 [facility] [place] [facility] Specialist Comment on above: Order Comment: [facility] performed at: [employer], [facility], [address] [place] [address], [address] [place] [address], [address] [place] [address], Can Intake Worker: Joshua Noguera MD [facility] Date/Time: [facility] Results Received Date/Time: [facility] Reported Date/Time: Performed By: #### 3 4F #### [facility] Default [address] [place] [address] XR ribs LT min 3V w CXR1V*on 04-27-2021 XR ribs LT min 3V w CXR1V* [facility] Main [address] [address] XRay Report Signed Patient: Darius Reyes MR#: [id number] 5 : 1980 Acct:[id number] Age/Sex: 40 / M ADM Date: 04/27/21 Loc: XDUCLY Room: Type: [facility] Attending Dr: Joy MORENO Ordering Provider: JOY [...] Samano Jr., D.ORodrigo04/27/2021 3:54 PM Dictation Location: [place] [address] Transcribed By: [facility] 04/27/21 1554 Dictated By: Tito Samano Jr, DO 04/27/21 1552 Signed By: 04/27/21 [address] [facility] XR ribs LT min 3V w CXR1V* [facility] [employer] Other XR ribs LT min 3V w CXR1V* [facility] [employer] Other XR ribs LT min 3V w CXR1V* [address] [place] [address] [employer] [facility] [employer] Other XR ribs LT min 3V w CXR1V* [place] [address] [employer] Other XR ribs LT min 3V w CXR1V* XRay Report [employer] Other XR ribs LT min 3V w CXR1V* Signed [employer] Other XR ribs LT min 3V w CXR1V* Patient: Darius Reyes MR#: [id number] [employer] Other XR ribs LT min 3V w CXR1V* 5 [employer] Other XR ribs LT min 3V w CXR1V* : 1980 Acct:[id number] [employer] Other XR ribs LT min 3V w CXR1V* Age/Sex: 40 / M ADM Date: 04/27/21 [employer] Other XR ribs LT min 3V w CXR1V* Loc: XDUCLY Room: Type: [facility] [employer] Other XR ribs LT min 3V w CXR1V* Attending Dr: Joy Nieto [facility] [employer] Other XR ribs LT min 3V w CXR1V* Ordering Provider: JOY NIETO [facility] [employer] Other XR ribs LT min 3V w CXR1V* Date of Service: 04/27/21 [employer] Other XR ribs LT min 3V w CXR1V* XR/XR ribs LT min 3V w CXR1V*: LEFT RIB PAIN [employer] Other XR ribs LT min 3V w CXR1V* Copies to: JOY NIETO [facility] [employer] Other XR ribs LT min 3V w CXR1V* PA CHEST WITH 5 VIEWS LEFT RIBS: [employer] Other XR ribs LT min 3V w CXR1V* CLINICAL HISTORY: Patient was leaning over a tire rim with a flashlight when he felt a pressure [facility] XR ribs LT min 3V w CXR1V* and pop in the left mid anterior rib area one week ago. [facility] XR ribs LT min 3V w CXR1V* COMPARISON: None [facility] XR ribs LT min 3V w CXR1V* Chest appears heart is normal size. Lungs are clear. No free air. Additional views of the left ribs [facility] XR ribs LT min 3V w CXR1V* demonstrate no displaced rib fracture. [facility] XR ribs LT min 3V w CXR1V* XR/XR ribs LT min 3V w CXR1V* [facility] Other XR ribs LT min 3V w CXR1V* IMPRESSION: [facility] XR ribs LT min 3V w CXR1V* NO ACUTE FINDINGS. [facility] XR ribs LT min 3V w CXR1V* Impression dictated by: Tito Samano Jr., D.O.04/27/2021 3:54 PM [facility] XR ribs LT min 3V w CXR1V* Dictation Location: [facility]- [facility] Other XR ribs LT min 3V w CXR1V* Transcribed By: NARINDER 04/27/21 [facility] Other XR ribs LT min 3V w CXR1V* Dictated By: Tito Samano Jr, DO 04/27/21 [facility] Other XR ribs LT min 3V w CXR1V* Signed By: [facility] XR ribs LT min 3V w CXR1V* 04/27/21 [facility] Other Vital Signs Date Time Vital Sign Value Performing Clinician Facility 01-02-2024 15:12-0500 Body height 175.3 cm Alonso Garnados NP Work Phone: [facility] 01-02-2024 15:12-0500 Body mass index (BMI) [Ratio] 23.36 kg/m2 Alonso Fruth [employer] WORK[employer] Work Phone: [facility] 01-02-2024 15:12-0500 Body temperature 96.8 [degF] Alonso Fruth [employer]AZ[employer] WORK[employer] Work Phone: [facility] 01-02-2024 15:12-0500 Body weight 71.76 kg Alonso Fruth [employer] WORK[employer] Work Phone: [facility] 01-02-2024 15:12-0500 Diastolic blood pressure 72 mm[Hg] Alonso Fruth [employer]AZ[employer] WORK[employer] Work Phone: [facility] 01-02-2024 15:12-0500 Heart rate 103 /min Alonso Fruth [employer] WORK[employer] Work Phone: [facility] 01-02-2024 15:12-0500 Respiratory rate 18 /min Alonso Fruth [employer]AZ[employer] WORK[employer] Work Phone: [facility] 01-02-2024 15:12-0500 SaO2% (BldA) [Mass fraction] 96 % Alonso Fruth [employer]AZ[employer] WORK[employer] Work Phone: [facility] 01-02-2024 15:12-0500 Systolic blood pressure 130 mm[Hg] Alonso Fruth [employer]AZ[employer] WORK[employer] Work Phone: [facility] 04-27-2021 15:50-0500 Body height 175.26 cm Joy Elijah Other [facility] 04-27-2021 15:50-0500 Body temperature 97.4 [degF] Joy Elijah Other [facility] 04-27-2021 15:50-0500 Diastolic blood pressure 82 mm[Hg] Joy Elijah Other [facility] 04-27-2021 15:50-0500 Respiratory rate 20 /min Joy Nieto Other [facility] 04-27-2021 15:50-0500 SaO2% (BldA) [Mass fraction] 99 % Joy Elijah Other [facility] 04-27-2021 15:50-0500 Systolic blood pressure 134 mm[Hg] Joy Goldsmithault Other [facility] Other Encounters Encounter Date Encounter Type Care Provider Facility Start: 01-10-2024 End: 01-10-2024 ambulatory YVETTE PEARCE Not Available Start: 01-02-2024 End: 01-02-2024 ambulatory ALONSO GRANADOS Not Available Start: 01-02-2024 End: 01-02-2024 Office outpatient visit 15 minutes Alonso E Silvio [employer] WORKER Work Phone: [facility] Comment on above: Rectal bleeding (Jessica maria guadalupe Dx); Sacroiliitis, not elsewhere classified (CMS/HCC) Start: 01-02-2024 End: 01-02-2024 Bamboo flowsheet Alonso E Fruth MAGAZ[employer] WORKER Work Phone: [facility] Start: 01-02-2024 End: 01-02-2024 Bamboo flowsheet Alonso E Fruth [employer] WORK[employer] Work Phone: [facility] Start: 06-26-2023 End: 06-27-2023 ambulatory [facility] Start: 06-23-2023 End: 06-23-2023 ambulatory LINDASY STEVENS Not Available Start: 05-17-2023 End: 05-17-2023 ambulatory LINDSAY STEVENS Not Available Start: 04-27-2021 End: 04-27-2021 ambulatory Joy Nieto Other [facility] Start: 04-27-2021 Office outpatient ne w 20 minutes Joy Nieto [facility] Plan of Treatment Date Care Activity Detail Author Start: 02-27-2024 Influenza vaccination Influenza Vacc ine (#1) [facility] Comment on above: Postponed from 10/28 (Patient Refused) Start: 10-29-2023 Influenza vaccination Influenza Vacc ine (#1) [facility] Payers Date Payer Category Payer [facility] [id number] 2020 [facility] [id number] 2020 Unknown [id number] 1979 Unknown [id number] 1979 Unknown [id number] [id number] 1979 Unknown [id number] 1979 Unknown [id number] 1979 Unknown [id number] Social History Date Type Detail Facility Start: 05-16-2023 End: 05-17-2023 Sex Assigned At [facility] Start: 06-15-1992 End: 01-02-2024 Tobacco smoking status ALIS Occasional tobacco smoker [facility] Start: 06-15-1992 History of tobacco use Cigarette Smo ker [facility] Start: 05-16-2023 End: 05-17-2023 Cigarettes smoked current (pack per day) - Reported 0.5 [facility] Start: 05-17-2023 End: 01-02-2024 Tobacco use and exposure Smokeless tobacco non-user [facility] Start: 05-17-2023 End: 01-02-2024 Alcoholic beverage intake Current drinker of alcohol (finding) [facility] Do you belong to any clubs or organizations such as catholic groups, unions, fraternal or athletic groups, or [...] Pertinent negatives include no nausea or vomiting. 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 [...] Procedure Laterality Date [place]EN[place]CT[place]Y 2003 [place]RACTURE SURGERY 1991 repaired compound fx of left leg- no metal VASECTOMY 2006 performed [place] FAMILY HISTORY: Family History Problem Relation Name [...] week recheck bleeding documented in this encounter [facility] Clinical Note 06-23-2023 Note Date & [...] follow up with PCP if symptoms persist [facility] Other Evaluation note Note Date & Type Note Facility Evaluation note Diagnosis Rectal bleeding- Primary Hemorrhage of rectum and anus Sacroiliitis, not elsewhere classified (CMS/HCC) Sacroiliitis, not elsewhere classified documented in this encounter [facility] Summary Purpose Family History No Family [...] section and content) DATE CREATED AUTHOR 05/07/2021 [facility] DATE CREATED AUTHOR AUTHOR'S ORGANIZ ATION 06/28/2022 [facility] Special[facility] DATE CREATED AUTHOR AUTHOR'S ORGANIZ ATION 06/27/2023 [facility] DATE CREATED AUTHOR AUTHOR'S ORGANIZ ATION 01/12/2024 [facility] dical Specialists EPIC REASON FOR VISIT [...] Care Teams (unrecognized sec tion and content) [employer]ger Relationship Specialty Start Date End Date Alex Donovan DO [address] [place] [address] PCP - General Family Medicine 05/12/23 Lindsay Stevens, MAGAZINE WORKER [address] [place] [address] PCP - [facility] 06/28/23 Lindsay Stevens, MAGAZINE WORKER [address] [place] [address] Nurse Practitioner Family Medicine 05/12/23 [employer] Relationship Specialty Start Date End Date Alex Donovan DO [address] [place] [address] PCP - General Family Medicine 05/12/23 Lindsay Stevens, MAGAZINE WORKER [address] [place] [address] [facility] 06/28/23 Lindsay Stevens, MAGAZINE WORKER [address] [place] [address] Nurse Practitioner Family Medicine 05/12/23 FOR RECORDS [...] BE BASED ON THE PRIMARY CLINICAL RECORDS. [facility]. provides no warranty or guarantee of the accuracy or completeness of information in this document.
[2024-01-16 07:15] VITALS: BP 119/57; PULSE 65; TEMP 35.7; O2SAT 97; BMI 22.9
[2024-01-16] MEDS: 0.9 % SODIUM CHLORIDE 500 ML 50 ML IV (07:34)
--- NOTE | 2024-01-16 07:53 | W.PM.PROCNOT ---
Date of procedure: 01/16/24 Pre-op diagnosis: rectal bleeding Post-op diagnosis: other (moderate internal hemorrhoids, no active bleeding ) Procedure: Previous colonoscopy: never procedure: diagnostic colonoscopy The patient was given IV conscious sedation.? The patient's SPO2 remained above 90% throughout the procedure. The colonoscope was inserted per rectum and advanced under direct vision to the cecum without difficulty.? The prep was good.? Findings: Terminal ileum os: normal Cecum/Ascending colon: normal Transverse colon: normal Descending/Sigmoid colon: normal Rectum/Anus: examined in normal and retroflexed positions and was normal aside for moderate internal hemorrhoids, no active bleeding or ulcerations Withdrawal Time was (minutes): 10 The colon was decompressed and the scope was removed.? The patient tolerated the procedure well. Recommendations/Plan: 1.? Lifestyle and dietary modifications as discussed 2.? F/U in 10 years for repeat c-scope 3.? Discussed with the family Anesthesia: MAC Surgeon: Roosevelt Valdez Estimated blood loss (mL): 0 Pathology: none sent Condition: stable Disposition: PACU
[2024-01-16 08:26] VITALS: BP 129/69; PULSE 94; TEMP 36.1; O2SAT 94
[2024-01-16 08:41] VITALS: BP 137/91; PULSE 77; O2SAT 98
[2024-01-16 08:56] VITALS: BP 90/70; PULSE 72; O2SAT 98
== END 2024-01-16 09:05 | disposition home or self-care (01) ==
PROVIDERS: Visit Provider Surgery
PROC: (CPT 00811; principal; 2024-01-16 08:00)
DX: K62.5 Hemorrhage of anus and rectum (principal); K64.8 Other hemorrhoids
CPT/HCPCS: 00811; 45378; J2704